=== PATIENT | male | born 1940 | race Asian ===

== ENCOUNTER 2017-03-08 08:14 | Day surgery (SDC) | payer BC, OTHER ==
[2017-03-03 11:28] VITALS: BMI 21.9
[2017-03-08] MEDS ORDERED: PROPOFOL 20 ML ONE ×2 (08:31)
[2017-03-08 10:15] VITALS: TEMP 97.8
[2017-03-08 12:10] VITALS: BP 125/71; PULSE 48
== END 2017-03-08 10:25 | disposition home or self-care (01) ==
LOC: FASU-ENDO 08:14
PROVIDERS: ATTEND Internal Medicine Gastroenterology
PROC: 0DJD8ZZ Inspection of Lower Intestinal Tract, Via Natural or Artificial Opening Endoscopic (ICD-10-PCS; principal; 2017-03-08 09:16)
DX: Z12.11 Encounter for screening for malignant neoplasm of colon (principal); K57.30 Diverticulosis of large intestine without perforation or abscess without bleeding